=== PATIENT | male | born 1935 | race Hispanic/Latino ===

== ENCOUNTER 2016-07-13 05:45 | Observation (INO) | payer MEDICARE ==
[2016-07-13 05:56] VITALS: BMI 36.6
--- NOTE | 2016-07-13 06:02 | ED PDOC ---
Arrival/HPI - General Chief Complaint: High Blood Pressure Time Seen by Provider: 07/13/16 05:55 Historian: Patient - History of Present Illness Narrative History of Present Illness (Text): 07/13/16 05:59 Kane Davenport is a 81 year old male who presents to the emergency department for evaluation of epistaxis. Patient actively bleeding from the left nares. Reports he developed these symptoms soon after waking up today morning. Denies fever, chills, headache, dizziness, chest pain, difficulty breathing, abdominal pain, nausea, vomiting, diarrhea, urinary symptoms, or any other complaints at this time. Time/Duration: 1/2 hour Symptom Onset: Sudden Symptom Course: Unchanged Severity Level: Mild Activities at Onset: Light Context: Home Past Medical History - Provider Review Nursing Documentation Reviewed: Yes - Cardiac Hx Hypertension: Yes - Psychiatric Hx Substance Use: No Family/Social History - Physician Review Nursing Documentation Reviewed: Yes Family/Social History: No Known Family HX Smoking Status: no Hx Alcohol Use: No Hx Substance Use: No Allergies/Home Meds Allergies/Adverse Reactions: Allergies No Known Allergies Allergy (Verified 07/13/16 05:55) Home Medications: Home Meds Medication Instructions Recorded Confirmed Aspirin [Lo-Dose Aspirin EC] 81 mg PO QOTHERDAY 07/13/16 07/13/16 Atorvastatin [Lipitor] 10 mg PO DAILY 07/13/16 07/13/16 Valsartan/Hydrochlorothiazide 1 each PO DAILY 07/13/16 07/13/16 [Diovan Hct 160-12.5 mg Tab] Review of Systems - Physician Review All systems were reviewed & negative as marked: Yes - Review of Systems Constitutional: Normal. absent: Fatigue, Fevers ENT: Epistaxis (bleeding from left nostril ) Respiratory: Normal. absent: SOB, Cough Cardiovascular: Normal. absent: Chest Pain, Palpitations Gastrointestinal: Normal. absent: Abdominal Pain, Diarrhea, Nausea, Vomiting Neurological: Normal. absent: Headache, Dizziness Psychiatric: Normal Physical Exam Vital Signs Reviewed: Yes Vital Signs Temp Pulse Resp BP Pulse Ox 07/13/16 10:07 92 H 18 177/85 H 97 07/13/16 09:14 98.3 F 96 H 20 188/89 H 96 07/13/16 08:31 89 18 188/91 H 96 07/13/16 07:10 86 18 159/67 H 97 07/13/16 05:55 98.6 F 106 H 18 224/82 H 95 Temperature: Afebrile Blood Pressure: Hypertensive Pulse: Tachycardic Respiratory Rate: Normal Appearance: Positive for: Well-Appearing, Non-Toxic, Comfortable Pain Distress: None Mental Status: Positive for: Alert and Oriented X 3 - Systems Exam Head: Present: Atraumatic, Normocephalic Pupils: Present: PERRL Extroacular Muscles: Present: EOMI Conjunctiva: Present: Normal Nose (Internal): Present: Epistaxis (minimal bleeding from left nares ) Respiratory/Chest: Present: Clear to Auscultation, Good Air Exchange. No: Respiratory Distress, Accessory Muscle Use Cardiovascular: Present: Regular Rate and Rhythm, Normal S1, S2. No: Murmurs Abdomen: Present: Normal Bowel Sounds. No: Tenderness, Distention, Peritoneal Signs Upper Extremity: Present: Normal Inspection. No: Cyanosis, Edema Lower Extremity: Present: Normal Inspection. No: Edema Neurological: Present: GCS=15, CN II-XII Intact, Speech Normal Skin: Present: Warm, Dry, Normal Color. No: Rashes Psychiatric: Present: Alert, Oriented x 3, Normal Insight, Normal Concentration Medical Decision Making ED Course and Treatment: 07/13/16 06:04 Impression: A 81 year old male who presents to the emergency room for evaluation of nosebleed. Plan: -- nasal packing -- Reassess and disposition Progress Notes: 07/13/16 06:04 bleeding stopped after left nasal packing. patient is hemodynamically stable and tolerated the procedure well. rt nare packed for bleeding pt will be admitted to hospitalist for epistaxis 07/15/16 02:34 - Lab Interpretations Lab Results: 07/13/16 06:34 07/13/16 06:34 Lab Results 07/13/16 06:34: WBC 8.0, RBC 4.70, Hgb 14.6, Hct 42.2, MCV 89.8, MCH 31.1, MCHC 34.6, RDW 13.2, Plt Count 231, MPV 9.9, Gran % 63.2, Lymph % (Auto) 23.9, [place] % (Auto) 9.5 H, Eos % (Auto) 3.0, Baso % (Auto) 0.4, Gran # 5.09, Lymph # 1.9, [place] # 0.8 H, Eos # 0.2, Baso # 0.03, PT 11.1, INR 1.03, APTT 26.0, Sodium 141, Potassium 3.7, Chloride 101, Carbon Dioxide 30, Anion Gap 14, BUN 27 H, Creatinine 1.1, Est GFR ( Amer) > 60, Est GFR (Non-Af Amer) > 60, Random Glucose 141 H, Calcium 9.4, Total Bilirubin 0.8, AST 45, ALT 51, Alkaline Phosphatase 64, Total Protein 8.0, Albumin 4.3, Globulin 3.8, Albumin/Globulin Ratio 1.1 - Medication Orders Current Medication Orders: Discontinued Medications Acetaminophen (Tylenol 325mg Tab) 650 mg PO Q6 PRN PRN Reason: Pain, Mild (1-3) Last Admin: 07/13/16 17:16 Dose: 650 MG [facility] Pain/Vitals Document 07/13/16 17:16 SD (Rec: 07/13/16 17:20 [place] [facility] [id number] Pain Reassessment Is This A Pain ReAssessment? Yes Sleep Is patient sleeping during reassessment? No Presence of Pain Presence of Pain Yes Pain Scale Used Pain Scale Used Numeric Location Left, Right or Bilateral Left Pain Location Body Site Nose Description Intermittent Intensity 5 Scale Used Numeric Radiation Location Teeths Re-Assess: [facility] Pain/Vitals Document 07/13/16 18:16 SD (Rec: 07/13/16 18:26 SD [id number] Pain Reassessment Is This A Pain ReAssessment? Yes Presence of Pain Presence of Pain No Amlodipine Besylate (Norvasc) 5 mg PO DAILY [facility] Last Admin: 07/14/16 09:43 Dose: 5 MG [facility] Pulse and Blood Pressure Document 07/14/16 09:43 SD (Rec: 07/14/16 09:43 SD [id number]) Blood Pressure Blood Pressure (100/60-150/90) 142/82 Atorvastatin Calcium (Lipitor) 10 mg PO DIN [facility] Last Admin: 07/13/16 17:21 Dose: 10 MG Bacitracin (Bacitracin) 1 ea TOP TID [facility] Last Admin: 07/14/16 13:17 Dose: 1 EA Cephalexin Monohydrate (Keflex) 500 mg PO Q6 [facility] PRN Reason: Protocol Last Admin: 07/14/16 11:13 Dose: 500 MG Clonidine HCl (Catapres) 0.1 mg PO STAT STA Stop: 07/13/16 11:19 Last Admin: 07/13/16 11:31 Dose: 0.1 MG MAR Pulse and Blood Pressure Document 07/13/16 11:31 SD (Rec: 07/13/16 11:31 SD [id number]) Blood Pressure Blood Pressure (100/60-150/90) 180/90 Clonidine HCl (Catapres) 0.1 mg PO Q6H [facility] Last Admin: 07/13/16 12:38 Dose: Clonidine HCl (Catapres) 0.1 mg PO Q6H PRN PRN Reason: Systolic Blood Pressure Last Admin: 07/13/16 17:20 Dose: 0.1 MG MAR Pulse and Blood Pressure Document 07/13/16 17:20 SD (Rec: 07/13/16 17:21 SD [id number]) Pulse Pulse Rate (60-90) 101 Blood Pressure Blood Pressure (100/60-150/90) 169/92 Clonidine HCl (Catapres) 0.1 mg PO Q6H PRN PRN Reason: Systolic Blood Pressure Losartan Potassium (Cozaar) 100 mg PO DAILY [facility] Last Admin: 07/14/16 09:42 Dose: 100 MG Ondansetron HCl (Zofran Inj) 4 mg IVP Q6 PRN PRN Reason: Nausea/Vomiting Oxymetazoline HCl (Afrin 0.05%) 0 ml NS Q12 PRN PRN Reason: Dry nasal passages Pneumococcal Polyvalent Vaccine (Pneumovax 23 Vaccine) 0.5 ml IM .ONCE ONE Stop: 07/13/16 11:55 Last Admin: 07/13/16 17:23 Dose: Sodium Chloride ([place] Nasal [place]) 1 ml NS QID [facility] Last Admin: 07/14/16 13:18 Dose: 1 [place] - Scribe Statement The provider has reviewed the documentation as recorded by the Cem Garcia Provider Attestation: All medical record entries made by the Scribe were at my direction and personally dictated by me. I have reviewed the chart and agree that the record accurately reflects my personal performance of the history, physical exam, medical decision making, and the department course for this patient. I have also personally directed, reviewed, and agree with the discharge instructions and disposition. Disposition/Present on Arrival - Present on Arrival Any Indicators Present on Arrival: No History of DVT/PE: No History of Uncontrolled Diabetes: No Urinary Catheter: No History of Decub. Ulcer: No History Surgical Site Infection Following: None - Disposition Have Diagnosis and Disposition been Completed?: Yes Diagnosis: HTN (hypertension), Bleeding nose Disposition: HOSPITALIZED Disposition Time: 07:15 Condition: GOOD
[2016-07-13 06:44] LABS: ADD MANUAL DIFF? NO
[2016-07-13 06:50] LABS: BASO # 0.03 K/mm3 (0.0-2.0); BASO % 0.4 % (0.0-3.0); EOS # 0.2 (0.0-0.7); GRAN # 5.09 (1.4-6.5); GRAN % 63.2 % (50.0-68.0); HEMATOCRIT 42.2 % (42.0-52.0); LYMPH # 1.9 (1.2-3.4); LYMPH % 23.9 % (22.0-35.0); MEAN CELL VOLUME 89.8 fL (80.0-105.0); MEAN CORPUSCULAR HEMOGLOBIN 31.1 pg (25.0-35.0); MEAN CORPUSCULAR HGB CONC 34.6 g/dl (31.0-37.0); MEAN PLATELET VOLUME 9.9 fl (7.0-11.0); MONO # 0.8 (0.1-0.6); MONO % 9.5 % (1.0-6.0); PLATELET COUNT 231 10^3/uL (120.0-450.0); RED CELL DISTRIBUTION WIDTH 13.2 % (11.5-14.5)
[2016-07-13 06:52] LABS: INR 1.03 (0.93-1.08)
[2016-07-13 06:59] LABS: ALB/GLOB RATIO 1.1 (1.1-1.8); ALKALINE PHOSPHATASE 64 U/L (38-133); ALT/SGPT 51 U/L (7-56); AST/SGOT 45 U/L (15-59); BILIRUBIN,TOTAL 0.8 mg/dL (0.2-1.3); BLOOD UREA NITROGEN 27 mg/dL (7-21); CALCIUM 9.4 mg/dL (8.4-10.5); CARBON DIOXIDE 30 mmol/L (21-33); CHLORIDE 101 mmol/L (98-107); GFR AFRICAN-AMERICAN > 60; GLUCOSE,RANDOM 141 mg/dL (70-110); POTASSIUM 3.7 mmol/L (3.6-5.0); SODIUM 141 mmol/L (132-148)
[2016-07-13] MEDS ORDERED: Pneumococcal 23-Valent Vaccine IM ONE (11:54)
[2016-07-13] MEDS ORDERED: Oxymetazoline 0.05% Nasal Spray (30 ml) NS PRN (13:04)
--- NOTE | 2016-07-13 13:14 | CP.PCM.HP ---
<Kar Silver - Last Filed: 07/13/16 14:08> History of Present Illness - History of Present Illness History of Present Illness: CC: Nose Bleed HPI: Patient is a 81 y/o M with past medical hx of HTN and HLD who present with complaint of nose bleed. He states he woke this morning around 4 AM and noticed blood coming from the left side of his nose. He said he used a towel to absorb the blood while he held his nose and tilted his head back but this did not stop the bleeding. He then became worried, called his son, who took him to the ED. He notes that yesterday evening he coughed some blood tinged sputum. He denies any trauma, nose picking, or recent cold or allergies. He notes that his right ear always, "feels stuffy and painful" but worse today. He denies any headache , eye pain, sinus pain, mouth pain, nausea, vomiting, chest pain, palpitations, or diarrhea. PMD: Dr. Lockett Past med hx: HTN, HLD Past surgical hx: dental work last year Family hx: none Social hx: occasional alcohol use, denies tobacco or drug use Allergies: NKDA Present on Admission - Present on Admission Any Indicators Present on Admission: No Review of Systems - Constitutional Constitutional: absent: Chills, Fever - EENT Eyes: absent: Blurred Vision, Change in Vision, Itchy Eyes Ears: Decreased Hearing (right ear), Ear Pain (right ear) Nose/Mouth/Throat: Epistaxis. absent: Mouth Lesions, Mouth Pain, Sore Throat - Cardiovascular Cardiovascular: absent: Chest Pain, Dyspnea, Palpitations - Respiratory Respiratory: Cough, Hemoptysis. absent: Dyspnea - Gastrointestinal Gastrointestinal: absent: Abdominal Pain, Diarrhea, Nausea, Vomiting - Genitourinary Genitourinary: absent: Dysuria - Musculoskeletal Musculoskeletal: absent: Muscle Weakness, Numbness, Tingling - Integumentary Integumentary: absent: Lesions, Rash, Wounds - Neurological Neurological: Abnormal Hearing (right ear). 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) - INTEGUMENTARY Other/Comment: multiple brown skin discolorations ble, 1 small scar 1cm round to each lower leg from work related injury, surgical scar left knee - MUSCULOSKELETAL/RHEUMATOLOGICAL Hx Falls: No - GASTROINTESTINAL Hx Gastrointestinal Disorders: Yes (hard stools at times, obese) - GENITOURINARY/GYNECOLOGICAL Hx Prostate Problems: Yes (recent psa 8.5 as per pt no f/u) - PSYCHIATRIC Hx Substance Use: No - SURGICAL HISTORY Hx Orthopedic Surgery: Yes Other/Comment: 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 Bloody packing in left nare. No evidence of trauma. No swelling. Right TM bulging, no purulent fluid noted, non-erythemetous. - Neck Exam Neck exam: Positive for: Normal Inspection. Negative for: Tenderness, Thyromegaly - Respiratory Exam Respiratory Exam: Clear to Auscultation Bilateral, NORMAL BREATHING PATTERN. absent: Rales, Rhonchi, Wheezes - Cardiovascular Exam Cardiovascular Exam: REGULAR RHYTHM, +S1, +S2. absent: Gallop, Rubs, Systolic Murmur - GI/Abdominal Exam GI & Abdominal Exam: Normal Bowel Sounds, Soft. absent: Distended, Firm, Tenderness - Extremities Exam Extremities exam: Positive for: normal capillary refill, normal inspection, pedal pulses present. Negative for: pedal edema, tenderness - Back Exam Back exam: NORMAL INSPECTION. absent: rash noted, tenderness - Neurological Exam Neurological exam: Alert, CN II-XII Intact, Oriented x3 - Psychiatric Exam Psychiatric exam: Normal Affect, Normal Mood - Skin Skin Exam: Dry, Intact, Warm Results - Vital Signs Recent Vital Signs: Last Vital Signs Temp 97.4 F L 07/13/16 11:45 Pulse 95 H 07/13/16 11:45 Resp 12 07/13/16 11:45 BP 170/87 H 07/13/16 12:09 Pulse Ox 97 07/13/16 11:02 - Labs Result Diagrams: 07/13/16 06:34 07/13/16 06:34 Assessment & Plan - Assessment and Plan (Free Text) Assessment: 81 y/o M with past medical hx of htn and hld who presents with epistaxis, nasal packing performed in ED. ENT consulted and patient admitted due to hypertension and monitoring hgb and hct. Plan: 1) Epistaxis * ENT consulted, help appreciated * Hgb 14.6 and Hct 42.2 on admission. * PT, APTT, and INR within normal limits * Nasal packing in place * Hold home aspirin * Afrin Q12 PRN oozing * Keflex 500mg PO Q6H for staph prophylaxis * Bacitracin ointment * monitor for bleed 2) HTN * Initial BP 224/82 * Patient takes Diavan 160 12.5 daily * Started on Cozaar 100mg PO daily * Start Norvasc 5mg PO daily * Clonidine 0.1 mg PO Q6H PRN * Continue to monitor 3) HLD * resume home lipitor 4) PPX * SCD's and ambulation * zofran for nausea * tylenol for pain Assessment and plan discussed with attending physician. <Milady Mayfield - Last Filed: 07/13/16 14:52> Results - Vital Signs Recent Vital Signs: Last Vital Signs Temp 97.4 F L 07/13/16 11:45 Pulse 95 H 07/13/16 11:45 Resp 12 07/13/16 11:45 BP 170/87 H 07/13/16 12:09 Pulse Ox 97 07/13/16 11:02 - Labs Result Diagrams: 07/13/16 06:34 07/13/16 06:34 Attending/Attestation - Attestation I have personally seen and examined this patient.: Yes I have fully participated in the care of the patient.: Yes I have reviewed all pertinent clinical information: Yes Notes (Text): 07/13/16 14:48 81 year old male with past medical history of hypertension and dyslipidemia who presented with morning with complaints of epistaxis. He is s/p nasal packing in ED which controlled the bleeding. He is being admitted for overnight observation. ENT evaluation was appreciated; recommended po antibiotics, afrin prn and bacitracin ointment with blood pressure control. Continue to monitor cbc closely. Aspirin is on hold. Monitor for re-bleeding. His blood pressure has been uncontrolled. He is on cozaar. Clonidine prn and norvasc were added. Will monitor. Continue with statin for dyslipidemia. Milady Mayfield MD Hospitalist.
--- NOTE | 2016-07-13 13:47 | CON ---
DATE: 07/13/2016 REASON FOR CONSULTATION: Epistaxis. HISTORY OF PRESENT ILLNESS: The patient is a 81-year-old male who presented to the ED department thi s morning for evaluation of epistaxis. The patient states he spontaneously began bleeding from his l eft naris upon awakening. Developed these symptoms after awaking in the morning. The patient was se en in the ED. Within the ED, patient was packed bilaterally with Merocel and found to have a blood p ressure of 224/80 in the ED. The patient was given antihypertensives and sent to the floor with pack ing. ENT was consulted to evaluate. The patient was seen and examined. At the time, patient was porras ving blood pressures in the 180s. The patient denied any chest pain, shortness of breath, nausea, vo miting, diarrhea, fainting, loss of consciousness, hitting head, trauma to the nose. PAST MEDICAL HISTORY: Hypertension. Denies substance abuse. ALLERGIES: No known drug allergies. The patient was placed on clonidine and also started on Norvasc. PHYSICAL EXAMINATION: VITAL SIGNS: Temperature 98.6, pulse is 88, respiratory rate 18, blood pressure was in the 160s afte r medication, pulse ox is 96% on room air. GENERAL: Alert and oriented x 3, in mild distress. EYES: EOMI. PERRLA. MOUTH: Moist mucous membranes. Some blood within the oropharynx coming down from the nasopharynx. Poor dentition. Tongue midline. No floor of mouth swelling. Symmetrical palate elevation. NECK: Trachea midline lesion. NOSE: Both nares with packing in place. Packing removed from each naris. The patient sprayed with Afrin. No bleeding noticed in the right naris. Left naris, large clot suctioned from patient's left naris, oozing commenced. The patient had a Rapid Rhino placed and inflated. Bleeding stopped. Hem ostasis was adequate. RESPIRATION: Aerating well with no stridor, nonlabored breathing. LABORATORIES: White count 8, hemoglobin 14.6, hematocrit 42.2, platelets 231. ASSESSMENT AND PLAN: The patient is a 81-year-old male with a history of hypertension with a left-si ded epistaxis with no pinpoint area of bleeding, currently packed with a 7.5 cm anterior posterior Ra pid Rhino. 1. Recommend maintaining nasal packing for 48-72 hours. 2. Recommend controlling patient's blood pressure to maintain a normotensive blood pressure before p acking can be replaced. 3. Recommend patient be started on anti-staph antibiotics while pack is in place. Recommend Augment in at this time. 4. Recommend Afrin p.r.n. oozing, recommend nasal saline throughout the day 4 times daily, recommend bacitracin t.i.d. to both nares and also recommend patient be placed on of humidified oxygen t o prevent any sort of secondary bleeds. The patient should not have any instruments or nasal cannula inserted into his nose. The patient discussed in detail with nursing and the medicine team. Dago Rivera DO cc: [id number] TT: 07/13/2016 13:47:06 Confirmation # [id number] Dictation # [id number]
[2016-07-13 16:54] VITALS: RESP 20
[2016-07-13] MEDS: Bacitracin 500 Units/gm Oint Foilpak UD TOP SCH (17:21)
[2016-07-14 06:56] LABS: ADD MANUAL DIFF? NO
[2016-07-14 06:58] LABS: BASO # 0.02 K/mm3 (0.0-2.0); BASO % 0.2 % (0.0-3.0); EOS # 0.2 (0.0-0.7); EOS % 2.4 % (1.5-5.0); GRAN # 6.92 (1.4-6.5); GRAN % 68.3 % (50.0-68.0); HEMATOCRIT 39.6 % (42.0-52.0); LYMPH % 19.3 % (22.0-35.0); MEAN CELL VOLUME 89.2 fL (80.0-105.0); MEAN CORPUSCULAR HEMOGLOBIN 30.9 pg (25.0-35.0); MEAN CORPUSCULAR HGB CONC 34.6 g/dl (31.0-37.0); MEAN PLATELET VOLUME 9.9 fl (7.0-11.0); MONO % 9.8 % (1.0-6.0); PLATELET COUNT 196 10^3/uL (120.0-450.0); RED CELL DISTRIBUTION WIDTH 13.4 % (11.5-14.5); WHITE BLOOD COUNT 10.1 10^3/ul (4.5-11.0)
[2016-07-14 07:30] LABS: BLOOD UREA NITROGEN 23 mg/dL (7-21); CALCIUM 8.7 mg/dL (8.4-10.5); CARBON DIOXIDE 29 mmol/L (21-33); CHLORIDE 101 mmol/L (98-107); GFR AFRICAN-AMERICAN > 60; GLUCOSE,RANDOM 124 mg/dL (70-110); POTASSIUM 3.6 mmol/L (3.6-5.0); SODIUM 139 mmol/L (132-148)
[2016-07-14 07:51] VITALS: PULSE 63; TEMP 98.1; O2SAT 100
[2016-07-14] MEDS: Bacitracin 500 Units/gm Oint Foilpak UD TOP SCH ×2 (09:42→13:17)
[2016-07-14 09:44] VITALS: BP 142/82
--- NOTE | 2016-07-14 15:04 | CP.PCM.DIS ---
<Kar Silver - Last Filed: 07/16/16 16:13> Provider - Provider Date of Admission: 07/13/16 07:09 Attending physician: Stas Fowler MD Consults: Dr. Dago Rivera Time Spent in preparation of Discharge (in minutes): 35 Hospital Course - Lab Results Lab Results: Most Recent Lab Values WBC 10.1 10^3/ul (4.5-11.0) D 07/14/16 06:00 RBC 4.44 10^6/uL (3.5-6.1) 07/14/16 06:00 Hgb 13.7 gm/dL (14.0-18.0) L 07/14/16 06:00 Hct 39.6 % (42.0-52.0) L 07/14/16 06:00 MCV 89.2 fL (80.0-105.0) 07/14/16 06:00 MCH 30.9 pg (25.0-35.0) 07/14/16 06:00 MCHC 34.6 g/dl (31.0-37.0) 07/14/16 06:00 RDW 13.4 % (11.5-14.5) 07/14/16 06:00 Plt Count 196 10^3/uL (120.0-450.0) 07/14/16 06:00 MPV 9.9 fl (7.0-11.0) 07/14/16 06:00 Gran % 68.3 % (50.0-68.0) H 07/14/16 06:00 Lymph % (Auto) 19.3 % (22.0-35.0) L 07/14/16 06:00 [place] % (Auto) 9.8 % (1.0-6.0) H 07/14/16 06:00 Eos % (Auto) 2.4 % (1.5-5.0) 07/14/16 06:00 Baso % (Auto) 0.2 % (0.0-3.0) 07/14/16 06:00 Gran # 6.92 (1.4-6.5) H 07/14/16 06:00 Lymph # 2.0 (1.2-3.4) 07/14/16 06:00 [place] # 1.0 (0.1-0.6) H 07/14/16 06:00 Eos # 0.2 (0.0-0.7) 07/14/16 06:00 Baso # 0.02 K/mm3 (0.0-2.0) 07/14/16 06:00 PT 11.1 Seconds (9.9-11.8) 07/13/16 06:34 INR 1.03 (0.93-1.08) 07/13/16 06:34 APTT 26.0 Seconds (23.7-30.8) 07/13/16 06:34 Sodium 139 mmol/L (132-148) 07/14/16 06:00 Potassium 3.6 mmol/L (3.6-5.0) 07/14/16 06:00 Chloride 101 mmol/L (98-107) 07/14/16 06:00 Carbon Dioxide 29 mmol/L (21-33) 07/14/16 06:00 Anion Gap 13 (10-20) 07/14/16 06:00 BUN 23 mg/dL (7-21) H 07/14/16 06:00 Creatinine 1.0 mg/dL (0.5-1.4) 07/14/16 06:00 Est GFR ( Amer) > 60 07/14/16 06:00 Est GFR (Non-Af Amer) > 60 07/14/16 06:00 Random Glucose 124 mg/dL (70-110) H 07/14/16 06:00 Calcium 8.7 mg/dL (8.4-10.5) 07/14/16 06:00 Total Bilirubin 0.8 mg/dL (0.2-1.3) 07/13/16 06:34 AST 45 U/L (15-59) 07/13/16 06:34 ALT 51 U/L (7-56) 07/13/16 06:34 Alkaline Phosphatase 64 U/L (38-133) 07/13/16 06:34 Total Protein 8.0 g/dL (5.8-8.3) 07/13/16 06:34 Albumin 4.3 g/dL (3.0-4.8) 07/13/16 06:34 Globulin 3.8 gm/dL 07/13/16 06:34 Albumin/Globulin Ratio 1.1 (1.1-1.8) 07/13/16 06:34 - Hospital Course Hospital Course: HPI: Patient is a 81 y/o M with past medical hx of HTN and HLD who present with complaint of nose bleed. He states he woke this morning around 4 AM and noticed blood coming from the left side of his nose. He said he used a towel to absorb the blood while he held his nose and tilted his head back but this did not stop the bleeding. He then became worried, called his son, who took him to the ED. He notes that yesterday evening he coughed some blood tinged sputum. He denies any trauma, nose picking, or recent cold or allergies. He notes that his right ear always, "feels stuffy and painful" but worse today. He denies any headache , eye pain, sinus pain, mouth pain, nausea, vomiting, chest pain, palpitations, or diarrhea. Patient is a 81 y/o M with past medical hx of HTN and HLD who presented with a nose bleed. He was found to have elevated BP of 224/82 on admission. He was started on Cozaar, Norvasc, and Catapres. ENT was consulted due to epistaxis and was packed and started on Afrin, Bactraban and Keflex. His blood pressure improved and bleeding ceased. His hgb andhct remained stable and his INR was within normal limits. He was determined medically stable for discharge. He was advised to: follow up with your primary care physician within a week; follow up with your St[employer] Operator, Dr. Rivera, upon discharge; resume home medications except for baby aspirin until seen by ENT specialist; take medications as prescribed; eat a heart healthy diet and get at least 30 minutes of exercise 4 days a week; and if your condition worsens or new symptoms arise, please return to the emergency room. He verbalized understanding and was discharged with prescriptions for Keflex 500 mg PO Q6H and Norvasc 5mg PO daily. This is a brie summary of the patient's stay at this facility. For more detail, see patient's full chart. - Date & Time of H&P Date of H&P: 07/13/16 Time of H&P: 08:14 Discharge Exam - Head Exam Head Exam: ATRAUMATIC, NORMOCEPHALIC - Eye Exam Eye Exam: EOMI, Normal appearance, PERRL Pupil Exam: NORMAL ACCOMODATION, PERRL - ENT Exam ENT Exam: Mucous Membranes Moist. absent: Normal Exam (nasal packing in left nare) - Neck Exam Neck exam: Normal Inspection - Respiratory Exam Respiratory Exam: Clear to PA & Lateral, NORMAL BREATHING PATTERN. absent: Rales, Rhonchi, Wheezes - Cardiovascular Exam Cardiovascular Exam: REGULAR RHYTHM, +S1, +S2. absent: Gallop, Rubs, Systolic Murmur - GI/Abdominal Exam GI & Abdominal Exam: Normal Bowel Sounds, Soft. absent: Tenderness - Extremities Exam Extremities exam: normal capillary refill, normal inspection, pedal pulses present - Back Exam Back exam: NORMAL INSPECTION. absent: rash noted, tenderness - Neurological Exam Neurological exam: Alert, CN II-XII Intact, Oriented x3 - Psychiatric Exam Psychiatric exam: Normal Affect, Normal Mood - Skin Skin Exam: Dry, Intact, Normal Color, Warm Discharge Plan - Discharge Medications Prescriptions: Cephalexin [Keflex] 500 mg PO Q6 #12 cap amLODIPine [Norvasc] 5 mg PO DAILY #30 tab - Follow Up Plan Condition: GOOD Disposition: HOME/ ROUTINE Instructions: Pneumococcal Vaccine for Adults (DC), Nosebleed (GEN), Chronic Hypertension (DC), Hypertension (DC), Hypertension (GEN) Additional Instructions: You are medically stable for discharge. Please follow up with your primary care physician within a week. Please follow up with your [employer] Operator, Dr. Rivera, upon discharge. You are discharged with prescriptions for Keflex 500 mg PO Q6H and Norvasc 5mg PO daily. Please resume home medications except for baby aspirin until seen by ENT specialist. Please take medications as prescribed. Please eat a heart healthy diet and get at least 30 minutes of exercise 4 days a week. If your condition worsens or new symptoms arise, please return to the emergency room. Referrals: Dago Rivera, [Staff Provider] - <Milady Mayfield - Last Filed: 07/17/16 07:00> Provider - Provider Date of Admission: 07/13/16 07:09 Attending physician: Stas Fowler MD Hospital Course - Lab Results Lab Results: Most Recent Lab Values WBC 10.1 10^3/ul (4.5-11.0) D 07/14/16 06:00 RBC 4.44 10^6/uL (3.5-6.1) 07/14/16 06:00 Hgb 13.7 gm/dL (14.0-18.0) L 07/14/16 06:00 Hct 39.6 % (42.0-52.0) L 07/14/16 06:00 MCV 89.2 fL (80.0-105.0) 07/14/16 06:00 MCH 30.9 pg (25.0-35.0) 07/14/16 06:00 MCHC 34.6 g/dl (31.0-37.0) 07/14/16 06:00 RDW 13.4 % (11.5-14.5) 07/14/16 06:00 Plt Count 196 10^3/uL (120.0-450.0) 07/14/16 06:00 MPV 9.9 fl (7.0-11.0) 07/14/16 06:00 Gran % 68.3 % (50.0-68.0) H 07/14/16 06:00 Lymph % (Auto) 19.3 % (22.0-35.0) L 07/14/16 06:00 [place] % (Auto) 9.8 % (1.0-6.0) H 07/14/16 06:00 Eos % (Auto) 2.4 % (1.5-5.0) 07/14/16 06:00 Baso % (Auto) 0.2 % (0.0-3.0) 07/14/16 06:00 Gran # 6.92 (1.4-6.5) H 07/14/16 06:00 Lymph # 2.0 (1.2-3.4) 07/14/16 06:00 [place] # 1.0 (0.1-0.6) H 07/14/16 06:00 Eos # 0.2 (0.0-0.7) 07/14/16 06:00 Baso # 0.02 K/mm3 (0.0-2.0) 07/14/16 06:00 PT 11.1 Seconds (9.9-11.8) 07/13/16 06:34 INR 1.03 (0.93-1.08) 07/13/16 06:34 APTT 26.0 Seconds (23.7-30.8) 07/13/16 06:34 Sodium 139 mmol/L (132-148) 07/14/16 06:00 Potassium 3.6 mmol/L (3.6-5.0) 07/14/16 06:00 Chloride 101 mmol/L (98-107) 07/14/16 06:00 Carbon Dioxide 29 mmol/L (21-33) 07/14/16 06:00 Anion Gap 13 (10-20) 07/14/16 06:00 BUN 23 mg/dL (7-21) H 07/14/16 06:00 Creatinine 1.0 mg/dL (0.5-1.4) 07/14/16 06:00 Est GFR ( Amer) > 60 07/14/16 06:00 Est GFR (Non-Af Amer) > 60 07/14/16 06:00 Random Glucose 124 mg/dL (70-110) H 07/14/16 06:00 Calcium 8.7 mg/dL (8.4-10.5) 07/14/16 06:00 Total Bilirubin 0.8 mg/dL (0.2-1.3) 07/13/16 06:34 AST 45 U/L (15-59) 07/13/16 06:34 ALT 51 U/L (7-56) 07/13/16 06:34 Alkaline Phosphatase 64 U/L (38-133) 07/13/16 06:34 Total Protein 8.0 g/dL (5.8-8.3) 07/13/16 06:34 Albumin 4.3 g/dL (3.0-4.8) 07/13/16 06:34 Globulin 3.8 gm/dL 07/13/16 06:34 Albumin/Globulin Ratio 1.1 (1.1-1.8) 07/13/16 06:34 Attending/Attestation - Attestation I have personally seen and examined this patient.: Yes I have fully participated in the care of the patient.: Yes I have reviewed all pertinent clinical information, including history, physical exam and plan: Yes Notes (Text): 07/14/16 81 year old male with past medical history of hypertension and dyslipidemia who presented with complaint of epistaxis. He had nasal packing done in ED which controlled the bleeding. He was admitted for overnight observation. He was found to have uncontrolled hypertension which improved with cozaar and norvasc. He was seen by ENT who recommended keflex, afrin prn, bacitracin ointment and blood pressure control. Overnight he had no acute issues. Bleeding had ceased and his blood pressure improved. He was seen by ENT and cleared for discharge. He is discharged home to follow up with his pmd and to follow up with ENT. Instructed to hold his aspirin for 5-7 days until seen by pmd/ENT and resume if no further bleeding. Milady Mayfield MD Hospitalist.
== END 2016-07-14 16:27 | disposition home or self-care (01) ==
LOC: ED 05:45 → ERH 07:09 → 5RSO 07:44 → ERH 08:00 → 5RSO 10:31
PROVIDERS: ADMIT Hospitalist; ATTEND Hospitalist
DX: I10 Essential (primary) hypertension (principal); R04.0 Epistaxis; E78.5 Hyperlipidemia, unspecified; Z85.828 Personal history of other malignant neoplasm of skin; Z79.82 Long term (current) use of aspirin
CPT/HCPCS: 36415; 80048; 80053; 85025; 85610; 85730; 99284; G0378